=== PATIENT | male | born 1985 | race Hispanic/Latino ===

== ENCOUNTER 2021-12-23 09:35 | Emergency (ER) | payer BC, OTHER ==
[2021-12-23] MEDS ORDERED: Dicyclomine 20 MG/2 ML VIAL ONE (09:52)
[2021-12-23] MEDS ORDERED: Ondansetron ODT 4 MG TAB ONE (09:52)
== END 2021-12-23 10:23 | disposition home or self-care (01) ==
LOC: NAV ERS 09:35
DX: A08.4 Viral intestinal infection, unspecified (principal)
CPT/HCPCS: 96372; 99283; Q0162